=== PATIENT | male | born 1950 ===

== ENCOUNTER 2018-05-07 08:45 | Inpatient (IN) | payer MEDICARE, OTHER ==
[2018-05-07 08:45] VITALS: BMI 34.0
[2018-05-07] MEDS ORDERED: Dextrose 50% SYRINGE Inj (50 ml) ONE (08:55)
[2018-05-07] MEDS ORDERED: Dextrose 50% SYRINGE Inj (50 ml) IVP STA ×2 (09:21)
--- NOTE | 2018-05-07 09:27 | ED PDOC ---
Hyperglycemia/Hypoglycemia Time Seen by Provider: 05/07/18 09:09 Chief Complaint (Nursing): Altered Mental Status Chief Complaint (Provider): Hypoglycemia History Per: Patient, Family History/Exam Limitations: no limitations Onset/Duration Of Symptoms: Mins (prior to arrival) Current Symptoms Are (Timing): Gone Now Current Diabetic Medications: Insulin : The patient does not have any of the infectious symptoms listed except for those marked. Treatment Prior To Provider Evaluation: Accucheck Additional Complaint(s): 67yo male, history of diabetes, brought to ER by EMS for evaluation s/p hypoglycemic episode. Per patient's , patient was getting ready to go to doctor's appointment when he took his normal dose of insulin, ate some cereal and while getting dressed, she noted the patient to be standing infront of the mirror appearing dazed and "shaking" all over. She reports the patient was awake and standing and denies any loss of consciousness or falls. Per patient, the episode lasted 30 seconds however states patient was altered for approximately 7 minutes. Patient states he currently feels back to normal. Per EMS patient's accucheck on site was 90 and in ER, patient noted to have accucheck of 35. Patient states he is 1 month status post open heart surgery for "clogged arteries" but denies any bypass. Otherwise, patient denies any chest pain, shortness of breath, palpitations, headache, incontinence, tongue bite or loss of consciousness. NO other complaints. PMD: Dr. Dumas Past Medical History Reviewed: Historical Data, Nursing Documentation, Vital Signs Vital Signs: Last Vital Signs Temp 97.8 F 05/07/18 09:15 Pulse 90 05/07/18 09:09 Resp 15 05/07/18 09:09 BP 104/63 05/07/18 09:09 Pulse Ox 96 05/07/18 09:09 - Medical History PMH: Asthma, Diabetes, HTN, Hypercholesterolemia - Surgical History Other surgeries: open heart surgery - Family History Family History: States: No Known Family Hx - Immunization History Hx Tetanus Toxoid Vaccination: No Hx Influenza Vaccination: No - Home Medications Home Medications: Ambulatory Orders Medication Instructions Recorded Atorvastatin [Lipitor] 20 mg PO HS 06/27/17 Enalapril Maleate [Vasotec] 5 mg PO DAILY 06/27/17 Ibuprofen [Motrin] 600 mg PO Q6 #25 tab 06/27/17 Insulin Degludec [Tresiba 40 unit SQ DAILY 06/27/17 Flextouch U-100] MetFORMIN [glucOPHAGE] 1,000 mg PO BID 06/27/17 Ondansetron ODT [Zofran ODT] 4 mg PO Q8 #12 odt 06/27/17 Tamsulosin [Flomax] 0.4 mg PO DAILY #5 cap 06/27/17 - Allergies Allergies/Adverse Reactions: Allergies Allergy/AdvReac Type Severity Reaction Status Date / Time No Known Allergies Allergy Verified 05/07/18 09:09 Review of Systems ROS Statement: Except As Marked, All Systems Reviewed And Found Negative Constitutional: Positive for: Sweats. Negative for: Fever, Chills Cardiovascular: Negative for: Chest Pain, Palpitations Respiratory: Negative for: Shortness of Breath Neurological: Positive for: Confusion, Altered Mental Status Physical Exam - Reviewed Nursing Documentation Reviewed: Yes Vital Signs Reviewed: Yes - Physical Exam Appears: Positive for: Non-toxic, No Acute Distress Head Exam: Positive for: ATRAUMATIC, NORMAL INSPECTION, NORMOCEPHALIC Skin: Positive for: Normal Color, Warm, DRY Eye Exam: Positive for: EOMI, Normal appearance, PERRL ENT: Positive for: Normal ENT Inspection Neck: Positive for: Normal, Painless ROM Cardiovascular/Chest: Positive for: Regular Rate, Rhythm Respiratory: Positive for: Normal Breath Sounds. Negative for: Respiratory Distress Gastrointestinal/Abdominal: Positive for: Normal Exam, Soft. Negative for: Tenderness Back: Positive for: Normal Inspection. Negative for: L CVA Tenderness, R CVA Tenderness Extremity: Positive for: Normal ROM. Negative for: Pedal Edema, Deformity Neurologic/Psych: Positive for: Alert, Oriented. Negative for: Motor/Sensory Deficits - Laboratory Results Result Diagrams: 05/07/18 10:10 05/07/18 10:10 - ECG Interpretation Of ECG: NSR @ 92, sinus arrhythmia, TWI I, aVL. O2 Sat by Pulse Oximetry: 96 (RA) Pulse Ox Interpretation: Normal - Radiology X-Ray: Interpreted by Vt X-Ray Interpretation: Cardiomegaly Medical Decision Making Medical Decision Making: Impression: Hypoglycemic episode Plan: * Labs * CT Head w/o contrast * IV Dextrose 50ml Time: 09 Repeat accucheck was 264 Time: 1020 CT Head FINDINGS: HEMORRHAGE: No intracranial hemorrhage. BRAIN: Good corticomedullary differentiation is seen. Limited, proportional, diffuse expansion of the ventriculosulcal and cisternal spaces is appreciated with white matter lucency compatible with diffuse cerebral atrophy and chronic microangiopathy. No suspicious extra-axial fluid collection is identified and the midline brain anatomy appears grossly nonfocal as imaged. There is no mass effect throughout. VENTRICLES: Unremarkable. No hydrocephalus. CALVARIUM: Unremarkable. PARANASAL SINUSES: Unremarkable as visualized. No significant inflammatory changes. MASTOID AIR CELLS: Unremarkable as visualized. No inflammatory changes. OTHER FINDINGS: None. IMPRESSION: Limited age-appropriate age related neuro degenerative findings throughout the cerebrum. No definite acute intracranial findings by standard CT criteria. Follow-up CT or MRI are available if clinically warranted. Time: [address] Sunil Fuller, patient's senior major gifts officer who states patient had a 3 x CABG. He states patient's local senior major gifts officer is Dr. Cook Page placed to Dr. Cook and pending call back. Time: 1218 Case discussed with neurologist adjunct instructor in economics Dr. Rudd who recommends an EEG. Time: [address] Cook, who is aware. Scribe Attestation: Documented by Caridad Kelly, acting as a scribe for Aide Martin MD. Provider Scribe Attestation: All medical record entries made by the Scribe were at my direction and personally dictated by me. I have reviewed the chart and agree that the record accurately reflects my personal performance of the history, physical exam, medical decision making, and the department course for this patient. I have also personally directed, reviewed, and agree with the discharge instructions and disposition. Disposition - Disposition
[2018-05-07] MEDS ORDERED: Sodium Chloride 0.9% 1,000 ML IV STA (09:30)
--- NOTE | 2018-05-07 09:46 | CT ---
Date of service: 05/07/2018 PROCEDURE: CT HEAD WITHOUT CONTRAST. HISTORY: AMS resolved COMPARISON: None available. TECHNIQUE: Axial computed tomography images were obtained through the head/brain without intravenous contrast. Radiation dose: Total exam DLP = 890.16 mGy-cm. This CT exam was performed using one or more of the following dose reduction techniques: Automated exposure control, adjustment of the mA and/or kV according to patient size, and/or use of iterative reconstruction technique. FINDINGS: HEMORRHAGE: No intracranial hemorrhage. BRAIN: Good corticomedullary differentiation is seen. Limited, proportional, diffuse expansion of the ventriculosulcal and cisternal spaces is appreciated with white matter lucency compatible with diffuse cerebral atrophy and chronic microangiopathy. No suspicious extra-axial fluid collection is identified and the midline brain anatomy appears grossly nonfocal as imaged. There is no mass effect throughout. VENTRICLES: Unremarkable. No hydrocephalus. CALVARIUM: Unremarkable. PARANASAL SINUSES: Unremarkable as visualized. No significant inflammatory changes. MASTOID AIR CELLS: Unremarkable as visualized. No inflammatory changes. OTHER FINDINGS: None. IMPRESSION: Limited age-appropriate age related neuro degenerative findings throughout the cerebrum. No definite acute intracranial findings by standard CT criteria. Follow-up CT or MRI are available if clinically warranted.
[2018-05-07 10:26] LABS: BASO # 0.1 K/uL (0.0-0.2); BASO % 0.7 % (0.0-2.0); EOS # 0.3 K/uL (0.0-0.7); EOS % 3.2 % (0.0-4.0); HEMOGLOBIN 12.3 g/dL (12.0-18.0); LYMPH # 3.1 K/uL (1.0-4.3); LYMPH % 31.3 % (20.0-40.0); MEAN CELL VOLUME 87.6 fl (80.0-94.0); MEAN CORPUSCULAR HEMOGLOBIN 29.8 pg (27.0-31.0); MONO # 0.8 K/uL (0.0-0.8); MONO % 8.1 % (0.0-10.0); NEUT # 5.6 K/uL (1.8-7.0); NEUT % 56.7 % (50.0-75.0); NRBC % 0.1 % (0.0-0.0); RBC 4.12 Mil/uL (4.40-5.90); WHITE BLOOD COUNT 9.9 K/uL (4.8-10.8)
[2018-05-07 10:31] LABS: PROTHROMBIN TIME 10.5 Seconds (9.8-13.1)
[2018-05-07 10:59] LABS: ALB/GLOB RATIO 1.2 (1.0-2.1); ALBUMIN 4.5 g/dL (3.5-5.0); ALT/SGPT 21 U/L (21-72); AST/SGOT 23 U/L (17-59); BLOOD UREA NITROGEN 22 mg/dl (9-20); CALCIUM 10.1 mg/dL (8.4-10.2); GFR NON-AFRICAN AMERICAN 55
[2018-05-07 11:15] LABS: URINE BILIRUBIN NEGATIVE (NEGATIVE); URINE BLOOD NEGATIVE (NEGATIVE); URINE CLARITY SLIGHTY-CLOUDY (Clear); URINE COLOR YELLOW (YELLOW); URINE GLUCOSE (UA) 50 mg/dL (Normal); URINE LEUKOCYTE ESTERASE NEG Leu/uL (Negative); URINE PROTEIN NEGATIVE (NEGATIVE); URINE UROBILINOGEN 0.2-1.0 mg/dL (0.2-1.0)
--- NOTE | 2018-05-07 12:44 | RAD ---
HISTORY: Code Stroke COMPARISON: None available. TECHNIQUE: Chest, one view. FINDINGS: Examination limited by habitus. LUNGS: No focal consolidation. Please note that chest x-ray has limited sensitivity for the detection of pulmonary masses. PLEURA: No significant pleural effusion identified. No definite pneumothorax . CARDIOVASCULAR: Median sternotomy wires. Borderline cardiomegaly. OSSEOUS STRUCTURES: Degenerative changes. VISUALIZED UPPER ABDOMEN: Unremarkable. OTHER FINDINGS: None. IMPRESSION: No focal consolidation, significant pleural effusion, or definite pneumothorax identified.
--- NOTE | 2018-05-07 14:32 | CARD ---
APPROVED REPORT Date of service: 05/07/2018 EKG Measurement Heart [id number] <Conclusion> Normal sinus rhythm with frequent PAC LAFB NT wave abnormality Abnormal ECG
[2018-05-07] MEDS ORDERED: Glucagon Recombinant 1 mg Inj IM PRN (15:32)
[2018-05-07] MEDS ORDERED: Dextrose 50% SYRINGE Inj (50 ml) IV PRN (15:32)
[2018-05-07] MEDS: Insulin Lispro (humaLOG) 100 Units/ml Inj SC SCH ×2 (17:13→21:30)
[2018-05-08 05:31] LABS: ALBUMIN 4.4 g/dL (3.5-5.0); ALT/SGPT 24 U/L (21-72); AST/SGOT 21 U/L (17-59); BLOOD UREA NITROGEN 19 mg/dl (9-20); CALCIUM 9.9 mg/dL (8.4-10.2); GFR NON-AFRICAN AMERICAN > 60
[2018-05-08] MEDS: Insulin Lispro (humaLOG) 100 Units/ml Inj SC SCH ×4 (07:52→22:48)
[2018-05-08] MEDS: Enoxaparin 40 mg Syringe SC SCH (08:44)
--- NOTE | 2018-05-08 09:05 | CP.PCM.HP ---
Addendum entered and electronically signed by Vasile Schmitz MD 05/08/18 13:20: Pt seen and examined at bedside with Dr. Kilgore. Original Note: <Vasile Schmitz - Last Filed: 05/08/18 12:53> History of Present Illness - History of Present Illness History of Present Illness: 67 yo M pmhx of DM, HTN, CABG X3, presented to ED with due to hypoglycemic episode. Pt was seen to have generalized body "shaking". Associated symptom of AMS not responding to his . Denies CP/sob/N/V/loc. While at bedside, pt requested to go home. pmd: Dr. Dumas. Cardio: Dr. Cook Famhx: dm Soc: denies smoking/etoh/illicit drugs surg: cardiac, L eye Lives with NKDA Present on Admission - Present on Admission Any Indicators Present on Admission: Yes History of Uncontrolled Diabetes: Yes Review of Systems - Constitutional Constitutional: As Per HPI - Cardiovascular Cardiovascular: absent: Chest Pain - Respiratory Respiratory: absent: Cough, Dyspnea - Gastrointestinal Gastrointestinal: absent: Abdominal Pain - Neurological Neurological: As Per HPI. absent: Abnormal Gait Past Patient History - Past Medical History & Family History Past Medical History?: Yes - Past Social History Smoking Status: Former Smoker Alcohol: None Drugs: Denies Home Situation {Lives}: With Family - CARDIAC Hx Cardiac Disorders: Yes Other/Comment: cleaned 4 arteries no stents - PULMONARY Hx Respiratory Disorders: Yes Other/Comment: uses CPap at night - NEUROLOGICAL Hx Neurological Disorder: No - HEENT Hx Cataracts: Yes (right eye) - RENAL Hx Chronic Kidney Disease: Yes Hx Kidney Stones: Yes (one year ago) - ENDOCRINE/METABOLIC Hx Endocrine Disorders: Yes Hx Diabetes Mellitus Type 2: Yes - HEMATOLOGICAL/ONCOLOGICAL Hx Blood Disorders: No Hx AIDS: No Hx Human Immunodeficiency Virus (HIV): No - INTEGUMENTARY Hx Dermatological Problems: No - MUSCULOSKELETAL/RHEUMATOLOGICAL Hx Musculoskeletal Disorders: No Hx Falls: No - GASTROINTESTINAL Hx Gastrointestinal Disorders: No - GENITOURINARY/GYNECOLOGICAL Hx Genitourinary Disorders: No - PSYCHIATRIC Hx Psychophysiologic Disorder: No Hx Substance Use: No - SURGICAL HISTORY Hx Surgeries: Yes Hx Open Heart Surgery: Yes (April 02, 2018) - ANESTHESIA Hx Anesthesia: No Hx Anesthesia Reactions: No Hx Malignant Hyperthermia: No Has any member of the family had a problem w/ anesthesia?: No Meds Allergies/Adverse Reactions: Allergies Allergy/AdvReac Type Severity Reaction Status Date / Time No Known Allergies Allergy Verified 05/07/18 09:09 Physical Exam - Constitutional Appears: Well, No Acute Distress - Eye Exam Eye Exam: EOMI - Respiratory Exam Respiratory Exam: Clear to Auscultation Bilateral, NORMAL BREATHING PATTERN. absent: Wheezes - Cardiovascular Exam Cardiovascular Exam: +S1, +S2 - GI/Abdominal Exam GI & Abdominal Exam: Normal Bowel Sounds. absent: Tenderness - Neurological Exam Neurological exam: Alert, CN II-XII Intact, Oriented x3 - Psychiatric Exam Psychiatric exam: Normal Affect, Normal Mood - Skin Additional comments: midline sternal scar Results - Vital Signs Recent Vital Signs: Last Vital Signs Temp 97.7 F 05/08/18 08:05 Pulse 81 05/08/18 08:05 Resp 20 05/08/18 08:05 BP 129/74 05/08/18 08:44 Pulse Ox 99 05/08/18 08:05 - Labs Result Diagrams: 05/07/18 10:10 05/08/18 04:20 Labs: Laboratory Results - last 24 hr 05/07/18 05/07/18 05/07/18 09:22 09:25 10:10 WBC 9.9 RBC 4.12 L Hgb 12.3 Hct 36.1 MCV 87.6 MCH 29.8 MCHC 34.0 RDW 14.0 Plt Count 379 MPV 8.0 Neut % (Auto) 56.7 Lymph % (Auto) 31.3 Dukes % (Auto) 8.1 Eos % (Auto) 3.2 Baso % (Auto) 0.7 Neut # (Auto) 5.6 Lymph # (Auto) 3.1 Dukes # (Auto) 0.8 Eos # (Auto) 0.3 Baso # (Auto) 0.1 PT INR APTT Sodium Potassium Chloride Carbon Dioxide Anion Gap BUN Creatinine Est GFR ( Amer) Est GFR (Non-Af Amer) POC Glucose (mg/dL) 264 H Random Glucose Calcium Total Bilirubin AST ALT Alkaline Phosphatase Troponin I Total Protein Albumin Globulin Albumin/Globulin Ratio Urine Color Yellow Urine Clarity Slighty-cloudy Urine pH 5.0 Ur Specific [place] 1.011 Urine Protein Negative Urine Glucose (UA) 50 Urine Ketones Negative Urine Blood Negative Urine Nitrate Negative Urine Bilirubin Negative Urine Urobilinogen 0.2-1.0 Ur Leukocyte Esterase Neg Urine RBC (Auto) 3 Urine Microscopic WBC < 1 05/07/18 05/07/18 05/07/18 10:10 10:10 17:13 WBC RBC Hgb Hct MCV MCH MCHC RDW Plt Count MPV Neut % (Auto) Lymph % (Auto) Dukes % (Auto) Eos % (Auto) Baso % (Auto) Neut # (Auto) Lymph # (Auto) Dukes # (Auto) Eos # (Auto) Baso # (Auto) PT 10.5 INR 1.0 APTT 30.0 Sodium 137 Potassium 3.7 Chloride 100 Carbon Dioxide 26 Anion Gap 15 BUN 22 H Creatinine 1.3 Est GFR ( Amer) > 60 Est GFR (Non-Af Amer) 55 POC Glucose (mg/dL) 145 H Random Glucose 32 L* Calcium 10.1 Total Bilirubin 0.3 AST 23 ALT 21 Alkaline Phosphatase 147 H D Troponin I < 0.0120 Total Protein 8.4 H Albumin 4.5 Globulin 3.8 Albumin/Globulin Ratio 1.2 Urine Color Urine Clarity Urine pH Ur Specific [place] Urine Protein Urine Glucose (UA) Urine Ketones Urine Blood Urine Nitrate Urine Bilirubin Urine Urobilinogen Ur Leukocyte Esterase Urine RBC (Auto) Urine Microscopic WBC 05/07/18 05/08/18 05/08/18 21:01 04:20 05:21 WBC RBC Hgb Hct MCV MCH MCHC RDW Plt Count MPV Neut % (Auto) Lymph % (Auto) Dukes % (Auto) Eos % (Auto) Baso % (Auto) Neut # (Auto) Lymph # (Auto) Dukes # (Auto) Eos # (Auto) Baso # (Auto) PT INR APTT Sodium 138 Potassium 4.7 Chloride 98 Carbon Dioxide 28 Anion Gap 17 BUN 19 Creatinine 1.1 Est GFR ( Amer) > 60 Est GFR (Non-Af Amer) > 60 POC Glucose (mg/dL) 172 H 129 H Random Glucose 125 H Calcium 9.9 Total Bilirubin 0.4 AST 21 ALT 24 Alkaline Phosphatase 126 Troponin I Total Protein 8.6 H Albumin 4.4 Globulin 4.2 H Albumin/Globulin Ratio 1.0 Urine Color Urine Clarity Urine pH Ur Specific [place] Urine Protein Urine Glucose (UA) Urine Ketones Urine Blood Urine Nitrate Urine Bilirubin Urine Urobilinogen Ur Leukocyte Esterase Urine RBC (Auto) Urine Microscopic WBC Assessment & Plan (1) Hypoglycemia Status: Acute (2) Altered mental status Status: Acute - Assessment and Plan (Free Text) Plan: 67 yo M pmhx of DM, HTN, CABG X3, presented to ED with due to hypoglycemic episode and acute AMS. Pt AAOx3. Reports significant improvement in symptoms. Neurolgy: Dr. Rudd EEG yesterday; further recs appreciated Cardiology: Dr. Cook: recs appreciated Continue with current treatment/care plan as ordered Case dw Dr. Magui Schmitz MD PGY2 <Hemant Kilgore - Last Filed: 05/10/18 05:38> Results - Vital Signs Recent Vital Signs: Last Vital Signs Temp 98.2 F 05/10/18 05:20 Pulse 71 05/10/18 05:20 Resp 18 05/10/18 05:20 BP 107/69 05/10/18 05:20 Pulse Ox 95 05/10/18 05:20 - Labs Result Diagrams: 05/07/18 10:10 05/08/18 04:20 Labs: Laboratory Results - last 24 hr 05/09/18 05/09/18 05/09/18 05:18 11:49 15:55 POC Glucose (mg/dL) 114 H 254 H 170 H 05/09/18 05/10/18 21:00 05:20 POC Glucose (mg/dL) 154 H 178 H Assessment & Plan - Assessment and Plan (Free Text) Plan: Patient was personally seen and examined by me in rounds with residents. Available labs and diagnostic data reviewed. Case, Patient's condition and management plan discussed with residents in rounds. Agree with resident's progress note. Plan: As ordered.
--- NOTE | 2018-05-08 23:29 | CP.PCM.CON ---
History of Present Illness - History of Present Illness History of Present Illness: 67 yr old male with pmh of cabg x3, dm, htn who earlier today woke up and then felt very confused, and fell to the ground, observed to have some generalized shaking. He says that this has never occured prior to this spell, and that he felt better after coming to the ER. OF note, had an extremely low blood sugar. He denies weakness, aphasia, pain, headache, blurriness of vision, or any other symptoms presently. He is able to speak fluently and participate well in the neurological exam. ROS: none PMH/PSH: as above. FH/SH: lives with , now retired. no tobacco, no etoh. From [place]. ALl: nkda. On exam: Normal neurological examination. no gait abnormalities, no weakness, no ataxia. Past Patient History - Past Medical History & Family History Past Medical History?: Yes - Past Social History Smoking Status: Former Smoker Alcohol: None Drugs: Denies Home Situation {Lives}: With Family - CARDIAC Hx Cardiac Disorders: Yes Other/Comment: cleaned 4 arteries no stents - PULMONARY Hx Respiratory Disorders: Yes Other/Comment: uses CPap at night - NEUROLOGICAL Hx Neurological Disorder: No - HEENT Hx Cataracts: Yes (right eye) - RENAL Hx Chronic Kidney Disease: Yes Hx Kidney Stones: Yes (one year ago) - ENDOCRINE/METABOLIC Hx Endocrine Disorders: Yes Hx Diabetes Mellitus Type 2: Yes - HEMATOLOGICAL/ONCOLOGICAL Hx Blood Disorders: No Hx AIDS: No Hx Human Immunodeficiency Virus (HIV): No - INTEGUMENTARY Hx Dermatological Problems: No - MUSCULOSKELETAL/RHEUMATOLOGICAL Hx Musculoskeletal Disorders: No Hx Falls: No - GASTROINTESTINAL Hx Gastrointestinal Disorders: No - GENITOURINARY/GYNECOLOGICAL Hx Genitourinary Disorders: No - PSYCHIATRIC Hx Psychophysiologic Disorder: No Hx Substance Use: No - SURGICAL HISTORY Hx Surgeries: Yes Hx Open Heart Surgery: Yes (April 02, 2018) - ANESTHESIA Hx Anesthesia: No Hx Anesthesia Reactions: No Hx Malignant Hyperthermia: No Has any member of the family had a problem w/ anesthesia?: No Meds Home Medications: Home Medication List Medication Instructions Recorded Confirmed Type Aspirin [Aspirin Chewable] 81 mg PO DAILY chew 05/08/18 Rx Atorvastatin [Lipitor] 40 mg PO DAILY tab 05/08/18 Rx Ferrous Sulfate [Feosol] 325 mg PO BID tab 05/08/18 Rx Furosemide [Lasix] 40 mg PO DAILY tab 05/08/18 Rx Metoprolol Tartrate [Lopressor] 50 mg PO Q12 tab 05/08/18 Rx Tamsulosin [Flomax] 0.4 mg PO DAILY cap 05/08/18 Rx Allergies/Adverse Reactions: Allergies Allergy/AdvReac Type Severity Reaction Status Date / Time No Known Allergies Allergy Verified 05/07/18 09:09 - Medications Medications: Current Medications Aspirin (Aspirin Chewable) 81 mg PO DAILY [facility] Last Admin: 05/08/18 08:44 Dose: 81 mg Atorvastatin Calcium (Lipitor) 40 mg PO DAILY [facility] Last Admin: 05/08/18 08:44 Dose: 40 mg Dextrose (Dextrose 50% Inj) 0 ml IV STAT PRN; Protocol PRN Reason: Hypoglycemia Protocol Dextrose (Glutose 15) 0 gm PO ONCE PRN; Protocol PRN Reason: Hypoglycemia Protocol Enoxaparin Sodium (Lovenox) 40 mg SC DAILY [facility] PRN Reason: Protocol Last Admin: 05/08/18 08:44 Dose: 40 mg Ferrous Sulfate (Feosol) 325 mg PO BID [facility] Last Admin: 05/08/18 17:17 Dose: 325 mg Furosemide (Lasix) 40 mg PO DAILY [facility] Last Admin: 05/08/18 08:44 Dose: 40 mg Glucagon (Glucagen Diagnostic Kit) 0 mg IM STAT PRN; Protocol PRN Reason: Hypoglycemia Protocol Insulin Human Lispro (Humalog) 0 units SC [facility] PRN Reason: Protocol Last Admin: 05/08/18 22:48 Dose: Not Given Metoprolol Tartrate (Lopressor) 50 mg PO Q12 [facility] Last Admin: 05/08/18 21:14 Dose: 50 mg Tamsulosin HCl (Flomax) 0.4 mg PO DAILY [facility] Last Admin: 05/08/18 08:44 Dose: 0.4 mg Results - Vital Signs Recent Vital Signs: Last Vital Signs Temp 97.6 F 05/08/18 20:19 Pulse 67 05/08/18 21:14 Resp 16 05/08/18 20:19 BP 124/81 05/08/18 21:14 Pulse Ox 100 05/08/18 20:19 - Labs Result Diagrams: 05/07/18 10:10 05/08/18 04:20 Labs: Laboratory Results - last 24 hr 0905/08/18 05/08/18 04:20 04:20 05:21 Sodium 138 Potassium 4.7 Chloride 98 Carbon Dioxide 28 Anion Gap 17 BUN 19 Creatinine 1.1 Est GFR ( Amer) > 60 Est GFR (Non-Af Amer) > 60 POC Glucose (mg/dL) 129 H Random Glucose 125 H Hemoglobin A1c 6.7 H Calcium 9.9 Total Bilirubin 0.4 AST 21 ALT 24 Alkaline Phosphatase 126 Total Protein 8.6 H Albumin 4.4 Globulin 4.2 H Albumin/Globulin Ratio 1.0 05/08/18 05/08/18 05/08/18 12:18 16:08 21:17 Sodium Potassium Chloride Carbon Dioxide Anion Gap BUN Creatinine Est GFR ( Amer) Est GFR (Non-Af Amer) POC Glucose (mg/dL) 214 H 157 H 167 H Random Glucose Hemoglobin A1c Calcium Total Bilirubin AST ALT Alkaline Phosphatase Total Protein Albumin Globulin Albumin/Globulin Ratio Assessment & Plan - Assessment and Plan (Free Text) Assessment: ct head: shows atrophy in the frontal head regions, otherwise normal. with no stroke or hemorrhage. A/P: 67 yr old male who had a seizure secondary to hypoglycemic episode, secondary to diabetes. He is back to baseline now with no neurological deficits. There is no further neurological intervention recommended at this time. Thank you for consulting us. Dr. Osmani Rudd, Neurology
[2018-05-09] MEDS: Insulin Lispro (humaLOG) 100 Units/ml Inj SC SCH ×4 (08:28→21:25)
[2018-05-09] MEDS: Enoxaparin 40 mg Syringe SC SCH (09:13)
--- NOTE | 2018-05-09 13:41 | PN ---
DATE: 05/09/2018 SUBJECTIVE: The patient seen and examined. Interim events noted. Consults noted and appreciated. Neurology followup and intervention noted and appreciated. The patient remains in progressive care unit, on telemetry monitoring. Feels okay. Denies any chest pain, shortness of breath, or dizziness. PHYSICAL EXAMINATION: GENERAL: The patient is in no acute distress. VITAL SIGNS: Stable. HEART: S1 and S2. Normal and regular. LUNGS: Good bilateral air exchange. ABDOMEN: Soft and nontender. EXTREMITIES: No edema. No calf swelling. No tenderness. No acute ischemia. ANIMAL EVISCERATOR: Exam is essentially unchanged. DIAGNOSTIC DATA: Available diagnostic data reviewed. Accu-Cheks are acceptable. Hemoglobin A1c level is 6.7. Telemetry monitoring does not reveal significant arrhythmias. Cardiology consult was pending. ASSESSMENT AND PLAN: Overall, the patient's general medical condition is stable. Plan as ordered. Hemant Kilgore MD
[2018-05-10 08:27] VITALS: BP 123/77; PULSE 87; RESP 20; TEMP 97.9; O2SAT 98
[2018-05-10] MEDS: Insulin Lispro (humaLOG) 100 Units/ml Inj SC SCH (08:43)
[2018-05-10] MEDS: Enoxaparin 40 mg Syringe SC SCH (08:46)
--- NOTE | 2018-05-10 09:07 | CP.PCM.CON ---
History of Present Illness - History of Present Illness History of Present Illness: 67 yo male s/p cabg admitted with hypogoycemia glucose 32mg/dl. No chest pain or sob. Comfortable at rest. Past Patient History - Past Medical History & Family History Past Medical History?: Yes - Past Social History Smoking Status: Former Smoker Alcohol: None Drugs: Denies Home Situation {Lives}: With Family - CARDIAC Hx Cardiac Disorders: Yes Other/Comment: cleaned 4 arteries no stents - PULMONARY Hx Respiratory Disorders: Yes Other/Comment: uses CPap at night - NEUROLOGICAL Hx Neurological Disorder: No - HEENT Hx Cataracts: Yes (right eye) - RENAL Hx Chronic Kidney Disease: Yes Hx Kidney Stones: Yes (one year ago) - ENDOCRINE/METABOLIC Hx Endocrine Disorders: Yes Hx Diabetes Mellitus Type 2: Yes - HEMATOLOGICAL/ONCOLOGICAL Hx Blood Disorders: No Hx AIDS: No Hx Human Immunodeficiency Virus (HIV): No - INTEGUMENTARY Hx Dermatological Problems: No - MUSCULOSKELETAL/RHEUMATOLOGICAL Hx Musculoskeletal Disorders: No Hx Falls: No - GASTROINTESTINAL Hx Gastrointestinal Disorders: No - GENITOURINARY/GYNECOLOGICAL Hx Genitourinary Disorders: No - PSYCHIATRIC Hx Psychophysiologic Disorder: No Hx Substance Use: No - SURGICAL HISTORY Hx Surgeries: Yes Hx Open Heart Surgery: Yes (April 02, 2018) - ANESTHESIA Hx Anesthesia: No Hx Anesthesia Reactions: No Hx Malignant Hyperthermia: No Has any member of the family had a problem w/ anesthesia?: No Meds Home Medications: Home Medication List Medication Instructions Recorded Confirmed Type Aspirin [Aspirin Chewable] 81 mg PO DAILY chew 05/08/18 Rx Atorvastatin [Lipitor] 40 mg PO DAILY tab 05/08/18 Rx Ferrous Sulfate [Feosol] 325 mg PO BID tab 05/08/18 Rx Furosemide [Lasix] 40 mg PO DAILY tab 05/08/18 Rx Metoprolol Tartrate [Lopressor] 50 mg PO Q12 tab 05/08/18 Rx Tamsulosin [Flomax] 0.4 mg PO DAILY cap 05/08/18 Rx Allergies/Adverse Reactions: Allergies Allergy/AdvReac Type Severity Reaction Status Date / Time No Known Allergies Allergy Verified 05/07/18 09:09 - Medications Medications: Current Medications Aspirin (Aspirin Chewable) 81 mg PO DAILY [facility] Last Admin: 05/10/18 08:46 Dose: 81 mg Atorvastatin Calcium (Lipitor) 40 mg PO DAILY [facility] Last Admin: 05/10/18 08:45 Dose: 40 mg Dextrose (Dextrose 50% Inj) 0 ml IV STAT PRN; Protocol PRN Reason: Hypoglycemia Protocol Dextrose (Glutose 15) 0 gm PO ONCE PRN; Protocol PRN Reason: Hypoglycemia Protocol Enoxaparin Sodium (Lovenox) 40 mg SC DAILY [facility] PRN Reason: Protocol Last Admin: 05/10/18 08:46 Dose: 40 mg Ferrous Sulfate (Feosol) 325 mg PO BID [facility] Last Admin: 05/10/18 08:43 Dose: 325 mg Furosemide (Lasix) 40 mg PO DAILY [facility] Last Admin: 05/10/18 08:45 Dose: 40 mg Glucagon (Glucagen Diagnostic Kit) 0 mg IM STAT PRN; Protocol PRN Reason: Hypoglycemia Protocol Insulin Human Lispro (Humalog) 0 units SC ACHS [facility] PRN Reason: Protocol Last Admin: 05/10/18 08:43 Dose: 1 units Metoprolol Tartrate (Lopressor) 50 mg PO Q12 [facility] Last Admin: 05/10/18 08:45 Dose: 50 mg Tamsulosin HCl (Flomax) 0.4 mg PO DAILY [facility] Last Admin: 05/10/18 08:43 Dose: 0.4 mg Physical Exam - Head Exam Head Exam: NORMAL INSPECTION - ENT Exam ENT Exam: Mucous Membranes Moist - Respiratory Exam Respiratory Exam: Clear to Auscultation Bilateral - Cardiovascular Exam Cardiovascular Exam: REGULAR RHYTHM - Extremities Exam Extremities exam: Positive for: normal inspection Results - Vital Signs Recent Vital Signs: Last Vital Signs Temp 97.9 F 05/10/18 08:26 Pulse 87 05/10/18 08:45 Resp 20 05/10/18 08:26 BP 123/77 05/10/18 08:45 Pulse Ox 98 05/10/18 08:26 - Labs Result Diagrams: 05/07/18 10:10 05/08/18 04:20 Labs: Laboratory Results - last 24 hr 05/09/18 05/09/18 05/09/18 05:18 11:49 15:55 POC Glucose (mg/dL) 114 H 254 H 170 H 05/09/18 05/10/18 21:00 05:20 POC Glucose (mg/dL) 154 H 178 H Assessment & Plan - Assessment and Plan (Free Text) Assessment: Hypoglycemia , labs normalized No unstable cardiac symptoms Discharge to home f/u with cardiology as outpt
--- NOTE | 2018-05-10 09:16 | CP.PCM.PCO ---
Assessment & Plan - Assessment and Plan (Free Text) Assessment: pt. doing well this morning; seen by BS 150, 170 pt. denies h/a dizziness, sob ,cp fever or chills INsulin dose lowered to 20 units from 40 units, pt. instructed to monitor BS at home and follow up with pmd in 1 week f/u with and outpatient cleared for d/ c by , and
--- NOTE | 2018-05-10 12:04 | PN ---
DATE: 05/10/2018 SUBJECTIVE: The patient seen and examined. Interim events noted. Cardiology consult is pending. The patient remains in progressive care unit, on telemetry monitoring. Feels okay. Denies any specific complaint. No chest pain. No shortness of breath. No dizziness. No loss of consciousness. No episodes of low blood sugar. PHYSICAL EXAMINATION: GENERAL: The patient is in no acute distress. VITAL SIGNS: Stable. HEART: S1 and S2, normal and regular. LUNGS: Good bilateral air exchange. ABDOMEN: Soft, nontender. EXTREMITIES: No edema. No calf swelling. No tenderness. No acute ischemia. PHOTO STUDIO ASSISTANT: Exam is essentially unchanged. DIAGNOSTIC DATA: Available diagnostic data reviewed. Telemetry monitoring does not reveal significant arrhythmias. ASSESSMENT AND PLAN: Overall, the patient's general medical condition is stable. Plan as ordered. Hemant Kilgore MD
== END 2018-05-10 11:02 | disposition home health service (06) | DRG 639 ==
LOC: H.ER 08:45 → H.ERHOLD 12:14 → OBSVTOIN 12:14 → H.TEL 14:11
PROVIDERS: ADMIT Internal Medicine; ATTEND Internal Medicine
DX: E11.649 Type 2 diabetes mellitus with hypoglycemia without coma (principal); E11.22 Type 2 diabetes mellitus with diabetic chronic kidney disease; E78.00 Pure hypercholesterolemia, unspecified; I12.9 Hypertensive chronic kidney disease with stage 1 through stage 4 chronic kidney disease, or unspecified chronic kidney disease; N18.9 Chronic kidney disease, unspecified; R56.9 Unspecified convulsions; J45.909 Unspecified asthma, uncomplicated; Z95.1 Presence of aortocoronary bypass graft; Z87.891 Personal history of nicotine dependence